=== PATIENT | male | born 1975 | race Caucasian/White ===

== ENCOUNTER 2021-03-14 10:13 | Emergency (ER) | payer BC, OTHER ==
[2021-03-14 23:22] LABS: SARS-CoV-2 PCR by NAA DETECTED (NotDetected)
== END 2021-03-14 11:00 | disposition home or self-care (01) ==
LOC: BURERS 10:13
DX: U07.1 COVID-19 (principal); I10 Essential (primary) hypertension; J45.909 Unspecified asthma, uncomplicated; Z79.899 Other long term (current) drug therapy
CPT/HCPCS: 99283; U0003; U0005